=== PATIENT | female | born 1955 | race Caucasian/White ===

== ENCOUNTER 2018-06-27 07:25 | Day surgery (SDC) | END 2018-06-27 11:55 | disposition home or self-care (01) ==

== ENCOUNTER 2019-03-31 10:36 | Day surgery (SDC) | payer OTHER ==
[2019-03-31] VITALS (14 sets, daily range): BP systolic 96–143; BP diastolic 44–69; PULSE 68–84; RESP 15–33; Ht 152.4 cm; Wt 89.9 kg
[~2019-03-31] VITALS: Ht 152.4 cm; Wt 89.9 kg
[~2019-03-31 10:36] MED LIST: AMLO-147 PO; ASPI-903 PO; ATOR20TA38 PO; LOSA50TA14 PO; OMEP20CA16 PO
[2019-03-31] MEDS ORDERED: HYDR25TA6 PO (11:01)
[2019-03-31] MEDS ORDERED: POVIDONE IODINE 10% 28.4 GM OINT ONE (11:31)
[2019-03-31] MEDS ORDERED: BUPIVACAINE 0.5% (SDV) 30 ML INJ ONE (11:31)
[2019-03-31] MEDS ORDERED: LIDOCAINE 1% (MPF) 30 ML INJ ONE (11:31)
[2019-03-31] MEDS ORDERED: LACTATED RINGER'S 1,000 ML IV SCH (12:00)
--- NOTE | 2019-03-31 12:20 | PREAC ---
Date/Time of Note Date/Time of Note DATE: 03/31/19 TIME: 12:18 Anesthesia Eval and Record Evaluation Time Pre-Procedure Interview DATE: 03/31/19 TIME: 12:18 Age 63 Sex female NPO: 8 hrs Preoperative diagnosis Ingrown mail with paronychia lateral aspect left hallux Planned procedure Partial matrixectomy with plastic lip repair Past Medical History Past Medical History: Includes Cardio: HTN, Dyslipidemia Neuro: CVA (Left side weakness) GI: Obesity Surgery & Anesthesia Issues No known issue Meds Anticoagulation: No Beta Sushila within 24 hr: No Reason Beta Sushila not given: Pt. not on B-Sushila Reported Medications Hydrochlorothiazide* (Hydrochlorothiazide*) 25 Mg Tab, 25 MG PO DAILY, #30 TAB 03/31/19 Atorvastatin Calcium* (Atorvastatin Calcium*) 20 Mg Tablet, 20 MG PO QHS, #30 TAB 06/27/18 Omeprazole* (Omeprazole*) 20 Mg Capsule.dr, 20 MG PO AC BREAKFAST, #30 CAP 06/27/18 Amlodipine Besylate* (Amlodipine Besylate*) 10 Mg Tablet, 10 MG PO DAILY, #30 TAB 06/27/18 Losartan Potassium* (Losartan Potassium*) 50 Mg Tablet, 50 MG PO DAILY, TAB 06/27/18 Aspirin* (Aspirin* Chew) 81 Mg Tab.chew, 81 MG PO DAILY, TAB.CHEW 06/27/18 Current Medications Lactated Ringer's 1,000 ml @ 100 mls/hr Q10H IV ; Start 03/31/19 at 12:00 Meds reviewed: Yes Allergies Coded Allergies: No Known Allergy (Unverified , 03/31/19) Allergies Reviewed: Yes Labs/Studies Labs Reviewed: Reviewed by anesthesiologist test: N/A Pre-procedure Exam Last vitals Vital Signs Date Temp Pulse Resp B/P (MAP) Pulse Ox O2 O2 Flow FiO2 Time Delivery Rate 03/31/19 97.0 77 18 143/69 96 Room Air 11:32 (93) Airway: Adequate mouth opening Mallampati: Mallampati II Teeth: Normal Lung: Normal Heart: Normal ASA Physical Status ASA physical status: 3 Emergency: None Planned Anesthetic General/MAC: LMA Pre-operative Attestations Prior to commencing anesthesia and surgery, the patient was re-evaluated, there was verification of: *The patient's identity *The results of appropriate recent lab work and preoperative vital signs *The above evaluation not changing prior to induction *Anesthetic plan, risk benefits, alternative and complications discussed with patient/family; questions answered; patient/family understands, accepts and wishes to proceed. THI SHERIDAN MD Mar 31, 2019 12:20
[2019-03-31] MEDS ORDERED: METOCLOPRAMIDE 10 MG INJ ONE ×2 (12:30→12:38)
[2019-03-31] MEDS ORDERED: SEVOFLURANE 15 MIN ONE (12:30)
[2019-03-31] MEDS ORDERED: PROPOFOL 20 ML ONE (12:38)
[2019-03-31] MEDS ORDERED: LIDOCAINE 2% (SDV) 5 ML INJ ONE (12:38)
[2019-03-31] MEDS ORDERED: MEPERIDINE 100 MG INJ ONE (12:38)
[2019-03-31] MEDS ORDERED: ONDANSETRON 4 MG INJ ONE (12:38)
--- NOTE | 2019-03-31 12:50 | HPN ---
Date/Time of Note Date/Time of Note DATE: 03/31/19 TIME: 12:49 Interval H&P Admission Note Pt. seen H&P reviewed: No system changes CHAZ CHAPPELL DPM Mar 31, 2019 12:50
[2019-03-31] MEDS ORDERED: CEFAZOLIN 1 GM INJ ONE (13:21)
[2019-03-31] MEDS ORDERED: EPHEDrine 25 MG/5 ML SYG ONE (13:21)
[2019-03-31] MEDS ORDERED: NALOXONE (0.4 MG/ML) INJ ONE (13:28)
[2019-03-31] MEDS ORDERED: DIPHENHYDRAMINE 50 MG INJ IV PRN (13:30)
[2019-03-31] MEDS ORDERED: METOCLOPRAMIDE 10 MG INJ IV PRN (13:30)
[2019-03-31] MEDS ORDERED: MEPERIDINE 25 MG INJ IV PRN (13:30)
[2019-03-31] MEDS ORDERED: EPHEDrine 25 MG/5 ML SYG IV PRN (13:30)
[2019-03-31] MEDS ORDERED: OXYCODONE/ACETAMINOPHEN (5/325) TAB PO PRN ×2 (13:30)
[2019-03-31] MEDS ORDERED: MIDAZOLAM 1 MG/ML 2 ML INJ IV PRN (13:30)
[2019-03-31] MEDS ORDERED: hydrALAzine 20 MG INJ IV PRN (13:30)
[2019-03-31] MEDS ORDERED: ONDANSETRON 4 MG INJ IV PRN (13:30)
[2019-03-31] MEDS ORDERED: LABETALOL HCL 20MG INJ IV PRN (13:30)
[2019-03-31] MEDS ORDERED: FENTAnyl 50 MCG/ML VIAL IV PRN ×3 (13:30)
--- NOTE | 2019-03-31 13:44 | SIPON ---
Date/Time of Note Date/Time of Note DATE: 03/31/19 TIME: 13:41 Operative Report Preoperative Diagnosis Preop diagnosis ingrowing nail lateral aspect hallux with paronychia left foot Postoperative Diagnosis Postop diagnosis same Operation/Procedure Performed Surgery is a partial matricectomy with plastic clip repair lateral aspect hallux left Surgeon see signature line psychiatric technician assistant emergency medicine physician assistant none Anesthesia: general Estimated blood loss: minimal Transfusion Required none Specimen Specimen tissue Grafts/Implants none Complications none CHAZ CHAPPELL DPM Mar 31, 2019 13:44
--- NOTE | 2019-03-31 15:06 | PAC ---
Date/Time of Note Date/Time of Note DATE: 03/31/19 TIME: 15:05 Post-Anesthesia Notes Post-Anesthesia Note Last documented vital signs Vital Signs Date Temp Pulse Resp B/P (MAP) Pulse Ox O2 O2 Flow FiO2 Time Delivery Rate 03/31/19 68 18 104/57 93 Room Air 14:37 (73) 03/31/19 3.0 14:03 03/31/19 100.4 13:42 Activity: WNL Respiratory function: WNL Cardiovascular function: WNL Mental status: Baseline Pain reasonably controlled: Yes Hydration appropriate: Yes Nausea/Vomiting absent: Yes Comments BT: 99.1 THI SHERIDAN MD Mar 31, 2019 15:06
--- NOTE | 2019-03-31 16:21 | PREOPHP ---
DATE OF ADMISSION: 03/31/2019 HISTORY OF PRESENT ILLNESS: The patient is being admitted to the hospital for elective foot surgery, palliative treatment unsuccessful. The patient has been explained surgery, complications, alternati ves and elected to have elective foot surgery. The patient is having pain in the left hallux. ALLERGIES: THE PATIENT HAS NO ALLERGIES TO ANY MEDICINES. MEDICATIONS: She is taking medicine for high blood pressure. REVIEW OF SYSTEMS: Negative for heart, lung, liver, kidney and thyroid. PAST MEDICAL HISTORY: Negative for diabetes. She did have a stroke last year. I did not see any ot her pertinent history in upper extremity. SOCIAL HISTORY: Negative for smoking and alcohol. PHYSICAL EXAMINATION: Performed by Dr. Jones. LOWER EXTREMITIES: DP and PT are palpable +3. NEUROLOGICAL: Negative for pathology. DERMATOLOGICAL: Paronychia and ingrowing nail hallux, lateral aspect. FINAL DIAGNOSIS: ingrowing nail with paronychia, lateral aspect, left hallux. Dictated By: CHAZ DAILEY/PATI Conf#: [id number] DID#: [id number]
--- NOTE | 2019-03-31 16:50 | OPR ---
DATE OF OPERATION: 03/31/2019 PREOPERATIVE DIAGNOSIS: Ingrown with paronychia, lateral aspect, hallux left. POSTOPERATIVE DIAGNOSIS: Ingrown with paronychia, lateral aspect, hallux left. PROCEDURE: Partial matrixectomy with plastic lip repair, lateral aspect, hallux left. SURGEON: Chaz Jones DPM DESCRIPTION OF PROCEDURE: The patient was brought to the surgical suite and placed in a supine posit ion. The patient was under general anesthesia. The patient had a tourniquet at the base of the toe and base of the hallux. The patient had a sterile prep and drape. The findings are consistent with the pre and postoperative diagnoses. Laterally, the hallux nail was incised and then along that bord er, going 1 cm proximal through the eponychium and 0.5 cm distal to the nail groove longitudinal inci adama was made and then a semi-elliptical incision was made laterally connecting the 2 ends of the luis gitudinal incision and all the matrix granulation tissue was excised in total. The area was cleansed . The preoperative condition having been relieved, the area was then coaptated using 5-0 nylon. The area was injected with 0.5% Marcaine and the area had Steri-Strips applied and Marcaine injected. T he area was dressed with Betadine ointment, 4 x 4s impregnated with Betadine solution and Graeme with an outer layer of Koban made into a semi-compressive dressing. The patient tolerated surgery well an d was returned to recovery room in satisfactory condition. Dictated By: CHAZ DAILEY/PATI Conf#: [id number] DID#: [id number]
== END 2019-03-31 15:40 | disposition home or self-care (01) ==
LOC: SDS 10:36
PROVIDERS: ATTEND Podiatrist
DX: L60.0 Ingrowing nail (principal); I10 Essential (primary) hypertension; E78.5 Hyperlipidemia, unspecified; I69.354 Hemiplegia and hemiparesis following cerebral infarction affecting left non-dominant side
CPT/HCPCS: 11750; 88304; J0690; J2175; J2310; J2405; J2765